=== PATIENT | male | born 1965 | race Caucasian/White ===

== ENCOUNTER 2022-11-04 06:25 | Emergency (ER) | payer OTHER ==
[2022-11-04] MEDS ORDERED: Diphtheria,Pertussis(Acell),Tetanus Vaccine 0.5 ML Syringe IM ONE (07:16)
[2022-11-04] MEDS ORDERED: Sulfamethoxazole/Trimethoprim 800-160 MG Tab PO ONE (08:28)
== END 2022-11-04 09:09 | disposition home or self-care (01) ==
LOC: JD.ED 06:25
DX: S67.191A Crushing injury of left index finger, initial encounter (principal); W22.8XXA Striking against or struck by other objects, initial encounter
CPT/HCPCS: 73120; 90471; 90715; 99283; A9270